=== PATIENT | female | born 1990 | race Caucasian/White ===

== ENCOUNTER 2018-04-02 00:14 | Emergency (ER) | payer OTHER ==
[~2018-04-02] VITALS: Ht 160 cm; Wt 76.1 kg
[2018-04-02 00:17] VITALS: Ht 160 cm; Wt 76.1 kg
[2018-04-02] MEDS ORDERED: ONDANSETRON (ODT) 4 MG TAB ODT STA (02:00)
[2018-04-02] MEDS ORDERED: HYDROCODONE/APAP (5/325) TAB PO ONE (02:00)
[2018-04-02] MEDS ORDERED: SOD CHLORIDE 0.9% 1,000 ML IV ONE (03:30)
[2018-04-02] MEDS ORDERED: ONDA4TAB14 PO (04:15)
[2018-04-02] MEDS ORDERED: HYDR-4011 PO (04:15)
[2018-04-02 04:34] VITALS: BP 136/81; PULSE 57; RESP 20
[2018-04-02] MEDS ORDERED: LIDOCAINE/MYLANTA 40 ML BTL PO ONE (05:00)
--- NOTE | 2018-04-02 07:34 | ERD ---
ER Documentation Chief Complaint Chief Complaint ABD PAIN WITH N/V XTODAY HPI 27-year-old female presents for abdominal pain times 1 day. Patient also has associated nausea and vomiting. She states that she vomited multiple times. No blood or vomit noted. Abdominal pain is in the epigastric area rated 8 out of 1 0. She denies any diarrhea. Last bowel movement was normal yesterday. She took ibuprofen 800 mg at home with some improvement. She has history of appendectomy. ROS All systems reviewed and are negative except as per history of present illness. Medications Home Meds Active Scripts Hydrocodone/Acetaminophen ([place] 5-325 Tablet) 1 Each Tablet, 1 EACH PO Q6H PRN for PAIN, #10 TAB Prov:DONAL KATHLEEN DO 04/02/18 Ondansetron (Ondansetron Odt) 4 Mg Tab.rapdis, 4 MG PO Q6H PRN for NAUSEA AND/OR VOMITING, #15 TAB Prov:DONAL KATHLEEN DO 04/02/18 Allergies Allergies: Uncoded Allergies: PENICILLIN (Allergy, Severe, 04/02/18) PMhx/Soc Hx Miscellaneous Medical Probl: Yes (Pituitary tumor,Hypothyroid) Hx Alcohol Use: No Hx Substance Use: No Hx Tobacco Use: No Smoking Status: Never smoker Physical Exam Vitals Vital Signs Date Temp Pulse Resp B/P (MAP) Pulse Ox O2 O2 Flow FiO2 Time Delivery Rate 04/02/18 97.8 57 20 136/81 100 Room Air 04:34 (99) 04/02/18 98.3 59 19 126/64 99 00:17 (84) Physical Exam Const: No acute distress Resp: Clear to auscultation bilaterally Cardio: Regular rate and rhythm, no murmurs Abd: Soft, non distended. Normal bowel sounds, tenderness patient of the periumbilical area, no McBurney's point tenderness, no Benoit sign, no rebound or guarding noted Skin: No petechiae or rashes Back: No midline or flank tenderness Ext: No cyanosis, or edema Neur: Awake and alert Psych: Normal Mood and Affect Results 24 hrs Laboratory Tests Test 04/02/18 02:13 04/02/18 02:14 White Blood Count 15.4 10^3/ul Red Blood Count 4.69 10^6/ul Hemoglobin 12.2 g/dl Hematocrit 37.9 % Mean Corpuscular Volume 80.8 fl Mean Corpuscular Hemoglobin 26.0 pg Mean Corpuscular Hemoglobin Concent 32.2 g/dl Red Cell Distribution Width 12.8 % Platelet Count 307 10^3/UL Mean Platelet Volume 10.9 fl Immature Granulocytes % 0.500 % Neutrophils % 88.9 % Lymphocytes % 5.6 % Monocytes % 4.8 % Eosinophils % 0.0 % Basophils % 0.2 % Nucleated Red Blood Cells % 0.0 /100WBC Immature Granulocytes # 0.080 10^3/ul Neutrophils # 13.7 10^3/ul Lymphocytes # 0.9 10^3/ul Monocytes # 0.7 10^3/ul Eosinophils # 0.0 10^3/ul Basophils # 0.0 10^3/ul Nucleated Red Blood Cells # 0.0 10^3/ul Sodium Level 143 mmol/L Potassium Level 4.8 mmol/L Chloride Level 103 mmol/L Carbon Dioxide Level 22 mmol/L Anion Gap 18 Blood Urea Nitrogen 26 mg/dl Creatinine 2.75 mg/dl Est Glomerular Filtrat Rate mL/min 21 mL/min Glucose Level 122 mg/dl Calcium Level 10.1 mg/dl Total Bilirubin 0.1 mg/dl Direct Bilirubin 0.00 mg/dl Indirect Bilirubin 0.1 mg/dl Aspartate Amino Transf (AST/SGOT) 44 IU/L Alanine Aminotransferase (ALT/SGPT) 25 IU/L Alkaline Phosphatase 83 IU/L Total Protein 8.2 g/dl Albumin 4.8 g/dl Globulin 3.40 g/dl Albumin/Globulin Ratio 1.41 Lipase 60 U/L POC Beta HCG, Qualitative NEGATIVE Urine Color YELLOW Urine Clarity SLIGHTLY CLOUDY Urine pH 5.0 Urine Specific [place] 1.009 Urine Ketones NEGATIVE mg/dL Urine Nitrite NEGATIVE mg/dL Urine Bilirubin NEGATIVE mg/dL Urine Urobilinogen NEGATIVE mg/dL Urine Leukocyte Esterase NEGATIVE Cuate/ul Urine Microscopic RBC 4 /HPF Urine Microscopic WBC 6 /HPF Urine Squamous Epithelial Cells FEW /HPF Urine Bacteria FEW /HPF Urine Hemoglobin NEGATIVE mg/dL Urine Glucose NEGATIVE mg/dL Urine Total Protein 1+ mg/dl Current Medications Medications Dose Sig/Sarah Start Time Status Last (Trade) Ordered Route PRN Stop Time Admin Dose Reason Admin Ondansetron 4 mg ONCE STAT 04/02/18 DC 04/02/18 HCl (Zofran ODT 02:00 02:11 Odt) 04/02/18 02:03 1 tab ONCE ONCE 04/02/18 DC 04/02/18 Acetaminophen PO 02:00 02:19 / 04/02/18 02:03 Hydrocodone Bitart ([place] (5/325)) Sodium 1,000 ml @ Q1H ONCE 04/02/18 DC 04/02/18 Chloride 1,000 mls/hr IV 03:30 03:28 04/02/18 04:29 40 ml ONCE ONCE 04/02/18 DC 04/02/18 Miscellaneous PO 05:00 04:42 Medication 04/02/18 05:01 (Gi Cocktail (2)) Procedures/MDM Medical Decision Making: Differential diagnosis includes but not limited to acute gastritis, acute gastroenteritis, cholecystitis, pancreatitis. Patient appeared well on physical exam. Nontoxic appearing. There was some periumbilical tenderness to palpation. There is no rebound or guarding. Labs: CBC showed no anemia, elevated wbc 15.4 CMP showed no electrolyte abnormalities, liver function normal, kidney function elevated BUN 26, Cr 2.75 Lipase was normal Urine was negative UA was negative for infection Imaging: Renal ultrasound was unremarkable, kidney size noted to be normal Patient likely has acute gastroenteritis. Elevated BUN/creatinine likely related to an acute kidney injury due to dehydration. ED course: Patient was given IV fluids, GI cocktail, Zofran, [place]. Symptoms improved with treatment. Patient advised to follow-up with her primary care physician for repeat kidney function labs. Elevated WBC likely due to stress reaction. Prescription(s): Patient given prescription for Zofran and [place] short course low-dose Patient advised to follow up with PCP in 1-2 days. Patient advised to return to ED for new or worsening symptoms. Patient stable on discharge from the ED. The patient has been prescribed [place] during this encounter. The patient has been warned about the use of narcotics. The patient should not drive or operate heavy machinery while taking this medication. The patient was also warned about the addictive properties of narcotic medications. Narcan prescription was NOT provided given the following criteria 1. No more than 5 tablets of [place] 10 mg or 10 tablets of [place] 5 mg were prescribed. 2. Concomitant opiate and benzodiazepine prescriptions were not provided. 3. There is no obvious evidence of prior history of opiate abuse or overdose. Disclaimer: Inadvertent spelling and grammatical errors are likely due to EHR/dictation software use and do not reflect on the overall quality of patient care. Also, please note that the electronic time recorded on this note does not necessarily reflect the actual time of the patient encounter. Departure Diagnosis: Primary Impression: JOANA (acute kidney injury) Additional Impressions: Abdominal pain Nausea and vomiting Condition: Fair Patient Instructions: Abdominal Pain, Nausea and Vomiting-Adult Referrals: [facility] YOU HAVE RECEIVED A MEDICAL SCREENING EXAM AND THE RESULTS INDICATE THAT YOU DO NOT HAVE A CONDITION THAT REQUIRES URGENT TREATMENT IN THE EMERGENCY DEPARTMENT. FURTHER EVALUATION AND TREATMENT OF YOUR CONDITION CAN WAIT UNTIL YOU ARE SEEN IN YOUR DOCTORS OFFICE WITHIN THE NEXT 1-2 DAYS. IT IS YOUR RESPONSIBILITY TO MAKE AN APPOINTMENT FOR FOLOW-UP CARE. IF YOU HAVE A PRIMARY DOCTOR --you should call your primary doctor and schedule an appointment IF YOU DO NOT HAVE A PRIMARY DOCTOR YOU CAN CALL OUR PHYSICIAN REFERRAL HOTLINE AT IF YOU CAN NOT AFFORD TO SEE A PHYSICIAN YOU CAN CHOSE FROM THE FOLLOWING [facility] [address] [facility] [address] [facility] [facility] [address] [facility] [address] [facility] [address] [facility] [facility]. [address] Additional Instructions: Call your primary care doctor TOMORROW for an appointment during the next 1-2 days.See the doctor sooner or return here if your condition worsens before your appointment time. Repeat blood test for kidney function with primary doctor. DONAL KATHLEEN DO Apr 02, 2018 07:34
== END 2018-04-02 05:02 | disposition home or self-care (01) ==
LOC: FTE 00:14
DX: N17.9 Acute kidney failure, unspecified (principal); E03.9 Hypothyroidism, unspecified; Z86.018 Personal history of other benign neoplasm
CPT/HCPCS: 36415; 76775; 80053; 81001; 81025; 83690; 85025; J7030; Z7502; Z7610